=== PATIENT | female | born 1930 | race Caucasian/White ===

== ENCOUNTER → 2016-09-08 | Outpatient (CLI) | payer OTHER | LOC: HYPER 09:52 | DX: S80.821D Blister (nonthermal), right lower leg, subsequent encounter (principal); I89.0 Lymphedema, not elsewhere classified; I10 Essential (primary) hypertension; E66.09 Other obesity due to excess calories; Z86.73 Personal history of transient ischemic attack (TIA), and cerebral infarction without residual deficits; Z90.710 Acquired absence of both cervix and uterus; Z96.651 Presence of right artificial knee joint; Z87.891 Personal history of nicotine dependence; Z72.89 Other problems related to lifestyle; X58.XXXD Exposure to other specified factors, subsequent encounter ==

== ENCOUNTER → 2016-12-14 | Outpatient (CLI) | payer OTHER | LOC: HYPER 09-20 16:24 | DX: I89.0 Lymphedema, not elsewhere classified (principal); S91.302A Unspecified open wound, left foot, initial encounter; I10 Essential (primary) hypertension; Z86.73 Personal history of transient ischemic attack (TIA), and cerebral infarction without residual deficits; S80.821D Blister (nonthermal), right lower leg, subsequent encounter; Z87.891 Personal history of nicotine dependence; E66.09 Other obesity due to excess calories; Z72.89 Other problems related to lifestyle; X58.XXXA Exposure to other specified factors, initial encounter; Y93.9 Activity, unspecified; Y92.9 Unspecified place or not applicable; Y99.9 Unspecified external cause status; X58.XXXD Exposure to other specified factors, subsequent encounter ==